=== PATIENT | female | born 1970 | race Caucasian/White ===

== ENCOUNTER 2023-03-22 15:03 | Outpatient (CLI) | payer BC ==
[~2023-03-22 15:03] MED LIST: Magnevist 469MG/ML 20 ML VIAL ONE
== END 2023-03-22 15:04 | disposition home or self-care (01) ==
LOC: CSHMRI 15:03
PROVIDERS: ATTEND Internal Medicine Hematology & Oncology
DX: G93.9 Disorder of brain, unspecified (principal); C19 Malignant neoplasm of rectosigmoid junction; G93.6 Cerebral edema
CPT/HCPCS: 70553